=== PATIENT | male | born 1955 | race Caucasian/White ===

== ENCOUNTER 2018-01-15 05:55 | Day surgery (SDC) | payer BC ==
[2018-01-14 09:16] LABS: HEMATOCRIT 46.9 % (42.0-54.0); HEMOGLOBIN 15.6 g/dL (13.5-17.5); MCH 29.8 pg (26.0-34.0); MCHC 33.3 g/dL (31.0-37.0); MCV 89.7 fL (80.0-100.0); RBC 5.23 10x6/uL (4.20-6.10); RDW 13.9 % (11.5-14.5); WBC 7.9 10x3/uL (4.8-10.8)
[~2018-01-15] VITALS: Ht 175.3 cm; Wt 77.1 kg
--- NOTE | ~2018-01-15 | OP ---
PATIENT NAME: DEMARIO JOVEL MEDICAL RECORD: [id number] :59 LOCATION:D.OPS ADMISSION DATE: SURGEON: CONRAD PEREIRA DPM DATE OF OPERATION: 01/15/2018 PREOPERATIVE DIAGNOSES: 1. Equinus, left leg. 2. Calcaneal spur, left foot. 3. Achilles tendon disruption, left foot. POSTOPERATIVE DIAGNOSES: 1. Equinus, left leg. 2. Calcaneal spur, left foot. 3. Achilles tendon disruption, left foot. PROCEDURES: 1. Gastroc recession, left leg. 2. Calcaneal spur removal, left foot. 3. Achilles tendon repair, left foot. ANESTHESIA: General with preoperative popliteal block per the anesthesia department. HEMOSTASIS: Left thigh tourniquet at 350 mmHg. PREOPERATIVE DETAILS: The patient was taken to the OR and following induction of general anesthesia, the patient was placed on the operating table in a prone position. The left extremity was then prepped and draped in the usual aseptic technique followed by exsanguination and inflation of tourniquet. PROCEDURE #1: Gastroc recession, left leg: A 15-blade was used to create a 4-cm linear incision over the posterior aspect of the gastroc aponeurosis. The incision was deepened down through subcutaneous tissue bluntly avoiding the sural nerve and vein. The paratenon was exposed. A 15 blade was used to create a linear incision exposing the aponeurosis. With the foot held in dorsiflexion, a V-cut was made through the aponeurosis allowing adequate ankle joint dorsiflexion. Wound was flushed and the skin was closed with skin iliana. PROCEDURE #2: Calcaneal spur removal, left foot: A 15-blade was used to create a 4-5 cm linear incision over the posterior medial aspect of the left heel. The incision was deepened down through subcutaneous tissue to the paratenon. Incision was made through the paratenon fraying the insertion of the Achilles tendon. There was noted to be significant spurring and enlargement. The Achilles tendon was then detached noting significant spurring up in the tendon. A sagittal saw was then used to resect the significant spurring. The area was smoothed with a bone rasp and flushed. PROCEDURE #3: Achilles tendon repair, left foot: Utilizing 4 anchors in a suture bridge technique, the Achilles tendon was repaired in a very rigid fashion to the posterior aspect of the calcaneus with excellent rigid internal fixation and repair. The wound was flushed. The paratenon and deep tissue were reapproximated with 2-0 Vicryl, the subcutaneous tissue with 4-0 Rapide, and the skin was closed with 4-0 Rapide in a subcuticular technique followed by Dermabond. Adaptic, 4 x 4 and Conform were used to dress the wound followed by application of modified Lindo compression dressing. Tourniquet was deflated. OPERATIVE REPORT [id number] DEMARIO JOVEL POSTOPERATIVE DETAILS: The patient tolerated the procedure well and left the OR with vital signs stable and vascular status at preoperative levels. The patient was transported to recovery per anesthesia in stable condition. TRANSINT:[id number] Voice Confirmation ID: [id number] DOCUMENT ID: [id number] CONRAD PEREIRA DPM at 0743 CC: [id number] DICTATION DATE: 01/15/18 0948 [employer] OFFICER: 01/15/18 1052 [facility] 01/15/18 [id number] [place] [address]
[~2018-01-15 05:55] MED LIST: ADVIL200 MG PO; CRESTOR10 MG PO; NORVASC5 MG PO; OMEPRAZOLE40 MG PO
[2018-01-15 06:31] VITALS: BP 115/72; Ht 175.3 cm; Wt 77.1 kg
== END 2018-01-15 11:45 | disposition home or self-care (01) ==
LOC: D.OPS 05:55 → D.PAN 08:00 → D.OPS 08:00
PROVIDERS: Anesthesiology
DX: M21.542 Acquired clubfoot, left foot (principal); M77.32 Calcaneal spur, left foot; S86.012A Strain of left Achilles tendon, initial encounter; X58.XXXA Exposure to other specified factors, initial encounter; Z01.812 Encounter for preprocedural laboratory examination